=== PATIENT | male | born 1995 | race Caucasian/White ===

== ENCOUNTER 2020-01-02 10:46 | Emergency (ER) | payer OTHER ==
[~2020-01-02] VITALS: Ht 190.5 cm; Wt 99.8 kg
--- NOTE | 2020-01-02 10:51 | NUR ---
NAME CALLED IN LOBBY, NO RESPONSE
[2020-01-02 11:00] VITALS: BP 151/99
--- NOTE | 2020-01-02 11:04 | NUR ---
PT AMBULATED TO ER BED 09
--- NOTE | 2020-01-02 11:14 | NUR ---
24 YO MALE C/O CHEST PAIN UPON WAKING UP THIS MORNING. PT STATES THAT HE WAS UP UNTIL 3M DRINKING ETOH AND ALSO SMOKED MARIJUANA AT THAT TIME WELL. 5/10 SHARP PAIN, NON RADIATING. DENIES ANY SOB. PT STATES HE DRANK HEAVILY LAST NIGHT. DENIES COUGH. PMH: ANXIETY, TAKING HYDROXINE NKA
--- NOTE | 2020-01-02 11:31 | NUR ---
xray at bedside
[2020-01-02 11:50] LABS: BASOPHILS # (AUTO) 0.1 K/uL (0.00-0.22); EOSINOPHILS # (AUTO) 0.1 K/uL (0-0.4); EOSINOPHILS % (AUTO) 1.2 % (0.0-4.0); HEMATOCRIT 43.1 % (36-52); HEMOGLOBIN 14.5 g/dL (12.0-18.0); LYMPHOCYTES # (AUTO) 1.4 K/uL (2.0-11.5); LYMPHOCYTES % (AUTO) 22.2 % (20.5-51.1); MEAN CORPUSCULAR HEMOGLOBIN 32 pg (27-31); MEAN CORPUSCULAR HGB CONC 34 g/dL (33-37); MEAN CORPUSCULAR VOLUME 93.7 fL (80-94); MONOCYTES # (AUTO) 0.7 K/uL (0.8-1.0); MONOCYTES % (AUTO) 10.4 % (1.7-9.3); NEUTROPHILS # (AUTO) 4.3 K/uL (1.8-7.7); NEUTROPHILS % (AUTO) 65.2 % (42.2-75.2); PLATELET COUNT (AUTO) 220 K/uL (140-450); WHITE BLOOD COUNT (AUTO) 6.5 K/uL (4.8-10.8)
[2020-01-02 12:15] LABS: ALBUMIN 3.7 g/dL (3.4-5.0); ANION GAP 12.3 (8-16); CARBON DIOXIDE 27.9 mmol/L (21-32); CREATININE 1.1 mg/dL (0.6-1.3); POTASSIUM 4.2 mmol/L (3.5-5.1); TOTAL BILIRUBIN 0.2 mg/dL (0.0-1.0)
[2020-01-02] MEDS ORDERED: FAMOTIDINE 20 MG TAB PO ONE (13:00)
[2020-01-02] MEDS ORDERED: DICYCLOMINE HCL LIQUID 20 MG, ALUMINUM HYD/MAG/SIMETHICONE 30 ML, LIDOCAINE VISCOUS 2% ... PO ONE ×3 (13:00)
[2020-01-02 13:06] VITALS: BP 128/82
== END 2020-01-02 13:09 | disposition home or self-care (01) ==
LOC: MED 10:46
DX: R07.9 Chest pain, unspecified (principal)
CPT/HCPCS: 36415; 71045; 80053; 83880; 84484; 85025; 93005; 99285; Q0092

== ENCOUNTER 2020-01-06 20:56 | Emergency (ER) | payer OTHER ==
[~2020-01-06] VITALS: Ht 190.5 cm; Wt 99.8 kg
[2020-01-06 21:07] VITALS: BP 138/91
--- NOTE | 2020-01-06 21:11 | NUR ---
PT AMBUALTED TO BED 12 WITH STEADY GAIT
--- NOTE | 2020-01-06 21:19 | NUR ---
EKG BEING PERFORMED AT BEDSIDE.
--- NOTE | 2020-01-06 21:21 | NUR ---
EKG PERFORMED AT BEDSIDE
[2020-01-06] MEDS ORDERED: IBUPROFEN 600 MG TAB PO ONE (22:15)
--- NOTE | 2020-01-06 22:46 | NUR ---
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 PT VSS. PT RESPIRATIONS ARE EVEN AND UNLABORED. SKIN IS WARM AND DRY TO TOUCH. PT AAOX4 AND RESONSIVE TO VERBAL STIMULI. PT STATES PAIN IS NOW 2/10 IN CHEST.
[2020-01-06 22:52] LABS: BASOPHILS % (AUTO) 0.5 % (0.0-2.0); EOSINOPHILS # (AUTO) 0.1 K/uL (0-0.4); EOSINOPHILS % (AUTO) 1.1 % (0.0-4.0); HEMATOCRIT 44.9 % (36-52); HEMOGLOBIN 15.1 g/dL (12.0-18.0); LYMPHOCYTES # (AUTO) 1.4 K/uL (2.0-11.5); MEAN CORPUSCULAR HEMOGLOBIN 32 pg (27-31); MEAN CORPUSCULAR HGB CONC 34 g/dL (33-37); MEAN CORPUSCULAR VOLUME 94.1 fL (80-94); MONOCYTES # (AUTO) 0.7 K/uL (0.8-1.0); MONOCYTES % (AUTO) 8.5 % (1.7-9.3); NEUTROPHILS # (AUTO) 6.4 K/uL (1.8-7.7); NEUTROPHILS % (AUTO) 73.9 % (42.2-75.2); PLATELET COUNT (AUTO) 238 K/uL (140-450); RED BLOOD CELL COUNT(AUTO) 4.77 MIL/uL (4.20-6.10); RED CELL DISTRIBUTION WIDTH 13.1 % (11.6-13.7); WHITE BLOOD COUNT (AUTO) 8.7 K/uL (4.8-10.8)
--- NOTE | 2020-01-06 23:00 | NUR ---
PROVIDING RELIEF CARE FOR PRIMARY RN JUDI. ASSUMED PT CARE AT THIS TIME.
[2020-01-06 23:37] LABS: ALBUMIN 3.9 g/dL (3.4-5.0); ANION GAP 11.7 (8-16); CARBON DIOXIDE 28.6 mmol/L (21-32); POTASSIUM 4.3 mmol/L (3.5-5.1); TOTAL BILIRUBIN 0.5 mg/dL (0.0-1.0)
--- NOTE | 2020-01-07 | NUR ---
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 VSS.
[2020-01-07 00:10] VITALS: BP 122/89
== END 2020-01-07 00:10 | disposition home or self-care (01) ==
LOC: MED 20:56
DX: R07.9 Chest pain, unspecified (principal); R03.0 Elevated blood-pressure reading, without diagnosis of hypertension; F12.90 Cannabis use, unspecified, uncomplicated; F10.99 Alcohol use, unspecified with unspecified alcohol-induced disorder
CPT/HCPCS: 36415; 71045; 80053; 83880; 84484; 85025; 93005; 99285; Q0092

== ENCOUNTER 2020-01-20 01:58 | Emergency (ER) | payer OTHER ==
[~2020-01-20] VITALS: Ht 190.5 cm; Wt 99.8 kg
[2020-01-20 02:11] VITALS: BP 146/87
--- NOTE | 2020-01-20 02:13 | NUR ---
pt triaged and waiting in tent
--- NOTE | 2020-01-20 02:15 | NUR ---
Alyssa hedrick in ED - 01/20/20 at 0216 by MEDTHOMAS KERVIN WILKINSON AT BEDSIDE ASSESSING PT
--- NOTE | 2020-01-20 02:49 | NUR ---
Patient discharged with v/s stable. Written and verbal after care instructions given and explained. Patient alert, oriented and verbalized understanding of instructions. Ambulatory with steady gait. All questions addressed prior to discharge. ID band removed. Patient advised to follow up with PMD. Rx of AZITHROMYCIN given. Patient educated on indication of medication including possible reaction and side effects. Opportunity to ask questions provided and answered.
== END 2020-01-20 02:50 | disposition home or self-care (01) ==
LOC: MED 01:58
DX: B34.9 Viral infection, unspecified (principal); Z20.828 Contact with and (suspected) exposure to other viral communicable diseases
CPT/HCPCS: 99283

== ENCOUNTER 2020-03-04 15:05 | Emergency (ER) | payer OTHER ==
[~2020-03-04] VITALS: Ht 190.5 cm; Wt 67.4 kg
[2020-03-04 15:14] VITALS: BP 133/60
--- NOTE | 2020-03-04 15:29 | NUR ---
PATIENT AMBULATED TO BED 9.
--- NOTE | 2020-03-04 15:44 | NUR ---
Patient discharged with v/s stable. Written and verbal after care instructions given and explained. Patient alert, oriented and verbalized understanding of instructions. Ambulatory with steady gait. All questions addressed prior to discharge. ID band removed. Patient advised to follow up with PMD. Rx of Zaditor given. Patient educated on indication of medication including possible reaction and side effects. Opportunity to ask questions provided and answered. No nursing care provided in our ER.
== END 2020-03-04 15:44 | disposition home or self-care (01) ==
LOC: MED 15:05
DX: H10.13 Acute atopic conjunctivitis, bilateral (principal)
CPT/HCPCS: 99282